=== PATIENT | female | born 2000 | race African-American/Black ===

== ENCOUNTER 2022-04-24 15:27 | Outpatient (CLI) | payer OTHER, SELFPAY ==
--- OUTSIDE RECORDS SUMMARY | 2022-04-24 15:37 | XMS_ITS | Clinical Summary ---
:2000 Author Organization [facility] [place] [address] Care Team Providers Name Role Phone Pcp, No Primary Care Provider Unavailable Allergies No known active allergies Medications Medication Sig Dispensed Refills Start Date End Date Status FLUoxetine (PROZAC) 20 Take 20 mg by 0 01/27/2022 Active mg capsule mouth once daily. Active Problems Problem Noted Date Sensorineural hearing loss (SNHL) of left ear with unr estricted hearing of 06/14/2021 right ear Encounters Date Type Specialty Care Team Description 02/09/2022 Office Visit Shantelle Hercules AuD Hear ing Aid (Fitting) 02/09/2022 Office Visit Karena Saavedra Consu lt (Medical Clearance PA for Hearing Aid s) 02/09/2022 Travel from Last 3 Months Immunizations Name Administration Dates Next Due Influenza, IIV4 03/25/2021 Influenza, IIV4 (=>6mos) MDV 02/20/2020 Social History Tobacco Use Types Packs/Day Years Used Date Never Smoker Smokeless Tobacco: Never Used Alcohol Use Standard Drinks/Week Comments Never 0 (1 standard drink = 0.6 oz pure alcoho l) Sex Assigned at Date Recorded Not on file Obstetrics History Plan of Treatment Health Maintenance Due Date Last Done Comments COVID-19 vaccine series (#1) 01/22/2001 HPV series for age 9-26 (1 - 2011 2-dose series) Tdap 2011 Depression screening for age 0207/25/2012 12+ Chlamydia for age 16-24 2016 BMI (ht and wt on same day) 2018 for age 18+ Hepatitis C screening for age 0207/25/2018 18-79 Tetanus booster 2020 Pap test for age 21-65 2021 Influenza for age 9-49 02/09/2022 03/25/2021, 02/20/2020 Meningococcal series for age Aged Out No longer eligible based 05-01 on patient's age to complete this to pic Procedures Procedure Name Priority Date/Time Associated Diagnosis Comme nts HEARING AID MEDICAL Routine 02/09/2022 10:18 AM Sensorineural hearing CLEARANCE CDT loss (SNHL) of left ear with unrestricted hearing of right ear from Last 3 Months Results Not on filefrom Last 3 Months Insurance Payer Benefit Plan / Subscriber ID Effective Dates Phone Addre ss Type [facility] PPO [id number] 2019-[facility] [id number] [place] [phone] Care Teams Rn Medical Surgical Relationship Specialty Start Date End Date Pcp, No PCP - General 05/25/21 .
[2022-04-24 19:45] LABS: Chlamydia DNA Amplified* NOT DETECTED (No Detected); GC DNA Amplified* NOT DETECTED (No Detected)
== END 2022-04-24 15:28 | disposition home or self-care (01) ==
PROVIDERS: Visit Provider Obstetrics & Gynecology
DX: B37.31 Acute candidiasis of vulva and vagina (principal); N89.8 Other specified noninflammatory disorders of vagina
CPT/HCPCS: 87102; 87491; 87591